=== PATIENT | male | born 1935 | race Caucasian/White ===

== ENCOUNTER 2016-12-04 21:58 | Emergency (ER) | payer MEDICARE, OTHER ==
--- NOTE | 2016-12-04 22:16 | EDM.PDOC ---
ED HPI GENERAL MEDICAL PROBLEM - General Chief Complaint: General Stated Complaint: cva s/s Time Seen by Provider: 12/04/16 22:05 Source of Information: Reports: Patient History Limitations: Reports: No limitations - History of Present Illness INITIAL COMMENTS - FREE TEXT/NARRATIVE: History of present illness: [81-year-old male brought in by EMS secondary to a syncopal type presentation. Son felt it could be a TIA patient seemed to present as if he was losing consciousness and then when son talked to him he had a blank stare which then he eventually returned to full consciousness without any noticeable deficits from baseline per family.] Review of systems: As per history of present illness and below otherwise all systems reviewed and negative. Past medical history: As per history of present illness and as reviewed below otherwise noncontributory. Surgical history: As per history of present illness and as reviewed below otherwise noncontributory. Social history: No reported history of drug or alcohol abuse. Family history: As per history of present illness and as reviewed below otherwise noncontributory. Physical exam: HEENT: Atraumatic, normocephalic, pupils reactive, negative for conjunctival pallor or scleral icterus, mucous membranes moist, throat clear, neck supple, nontender, trachea midline. Lungs: Clear to auscultation, breath sounds equal bilaterally, chest nontender. Heart: S1S2, regular, negative for clicks, rubs, or JVD. Abdomen: Soft, nondistended, nontender. Negative for masses or hepatosplenomegaly. Negative for costovertebral tenderness. Pelvis: Stable nontender. Genitourinary: Deferred. Rectal: Deferred. Extremities: Atraumatic, negative for cords or calf pain. Neurovascular unremarkable. Neuro: Awake, alert, oriented. Cranial nerves II through XII unremarkable. Cerebellum unremarkable. Motor and sensory unremarkable throughout. Exam nonfocal. Patient without any notable deficits upon arrival had left-sided weakness at home when incident occurred. Shared CT results with patient patient; patient aware of ongoing disease process , indicated he desired no intervention. Patient indicates he does have a CODE STATUS of DNR/DNI. Dialogued with the son SRINATH who supported his statement indicating that the family was in line with Antonio returning home without any interventions at this juncture. 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 - Related Data Allergies Allergy/AdvReac Type Severity Reaction Status Date / Time No Known Allergies Allergy Verified 04/15/16 21:02 Home Meds: Home Meds Allopurinol [Zyloprim] 100 mg PO DAILY 12/31/14 [History] Citalopram Hydrobromide [Celexa] 20 mg PO DAILY 12/31/14 [History] Metoprolol Succinate [Toprol XL] 200 mg PO DAILY 12/31/14 [History] Tamsulosin HCl 0.4 mg PO DAILY 10/13/15 [History] atorvaSTATin Calcium [Atorvastatin Calcium] 10 mg PO DAILY 10/13/15 [History] Ascorbate Calcium [Vitamin C] 500 mg PO DAILY 12/04/16 [History] Aspirin/Calcium Carbonate/Mag [Aspirin Buffered 325 mg Tab] 325 mg PO DAILY 09/10 [History] Finasteride 5 mg PO DAILY 12/04/16 [History] Folic Acid/Vitamin B Comp W-C [Dialyvite] 1 each PO DAILY 12/04/16 [History] Past Medical History HEENT History: Reports: Hard of hearing, Sinusitis Cardiovascular History: Reports: Afib, Hypertension Other Cardiovascular History: carotid endocardectomy Respiratory History: Reports: Other (see below) Other Respiratory History: Hx of pulmonary nodule. current smoker Genitourinary History: Reports: Other (see below) Other Genitourinary History: Bladder tumor removal Neurological History: Reports: Other (see below) Other Neuro History: Expressive aphasia Endocrine/Metabolic History: Reports: Other (see below) Other Endocrine/Metabolic History: chronic renal insufficiency,.[place] , wed, [place] [facility] [place]cologic (Cancer) History: Reports: Bladder - Past Surgical History Other Male Surgeries/Procedures: left orchiectomy. Oncologic Surgical History: Reports: Other (see below) Other Oncologic Surgeries/Procedures: Bladder tumor removal. Social & Family History - Tobacco Use Smoking Status *Q: Former Smoker Years of Tobacco use: 25 Packs/Tins Daily: 0.5 Used Tobacco, but Quit: Yes Second Hand Smoke Exposure: No - Recreational Drug Use Recreational Drug Use: No ED ROS GENERAL - Review of Systems Review Of Systems: See Below (See history of present illness) ED EXAM, GENERAL - Physical Exam Exam: See Below (See history of present illness) Course - Orders/Labs/Meds Orders: Active Orders 24 hr Category Date Time Status Head wo Cont [CT] Routine Exams 12/04/16 Taken LACTIC ACID [CHEM] Stat Lab 12/04/16 22:09 Ordered Labs: Laboratory Tests 12/04/16 12/04/16 Range/Units 22:09 22:09 WBC 8.4 (5.0-10.0) 10^3/uL RBC 3.41 L (4.50-6.00) 10^6/uL Hgb 11.1 L (14.0-18.0) g/dL Hct 33.8 L (40.0-54.0) % MCV 99.1 H (82.0-94.0) fL MCH 32.6 H (27.0-32.0) pg MCHC 32.8 L (33.0-38.0) g/dL RDW Coeff of Ryan 14.1 (11.0-15.0) % Plt Count 210 (150-400) 10^3/uL Neut % (Auto) 65.6 (35-85) % Lymph % (Auto) 17.6 (10-55) % [place] % (Auto) 9.3 (0-16) % Eos % (Auto) 7.1 H (0-5) % Baso % (Auto) 0.4 (0-3) % Neut # 5.54 (1.80-7.00) 10^3/uL Lymph # 1.48 (1.00-4.80) 10^3/uL Webster # 0.78 (0.00-0.80) 10^3/uL Eos # 0.60 H (0.00-0.45) 10^3/uL Baso # 0.03 10^3/uL Sodium 140 (136-145) mEq/L Potassium 4.3 (3.5-5.0) mEq/L Chloride 99 (98-106) mEq/L Carbon Dioxide 32 (21-32) mmol/L BUN 33 H D (7-18) mg/dL Creatinine 4.4 H* D (0.7-1.3) mg/dL Est Cr Clr Drug Dosing TNP Estimated GFR (MDRD) 13 L (>=60) mL/min Glucose 110 H (75-99) mg/dL Calcium 8.5 (8.4-10.1) mg/dL Total Bilirubin 0.5 (0.0-1.0) mg/dL AST 21 (15-37) U/L ALT 25 (12-78) U/L Alkaline Phosphatase 88 (46-116) U/L Troponin I < 0.017 (0.00-0.06) ng/mL Total Protein 7.6 (6.4-8.2) g/dL Albumin 3.4 (3.4-5.0) g/dL Departure - Departure Time of Disposition: 23:40 Disposition: Home, Self-Care 01 Condition: good Clinical Impression: Syncope Qualifiers: Syncope type: unspecified Qualified Code(s): R55 - Syncope and collapse Forms: ED Department Discharge Additional Instructions: The following information is given to patients seen in the emergency department who are being discharged to home. This information is to outline your options for follow-up care. We provide all patients seen in our emergency department with a follow-up referral. The need for follow-up, as well as the timing and circumstances, are variable depending upon the specifics of your emergency department visit. If you don't have a primary care physician on staff, we will provide you with a referral. We always advise you to contact your personal physician following an emergency department visit to inform them of the circumstance of the visit and for follow-up with them and/or the need for any referrals to a consulting specialist. The emergency department will also refer you to a specialist when appropriate. This referral assures that you have the opportunity for follow-up care with a specialist. All of these measure are taken in an effort to provide you with optimal care, which includes your follow-up. Under all circumstances we always encourage you to contact your private physician who remains a resource for coordinating your care. When calling for follow-up care, please make the office aware that this follow-up is from your recent emergency room visit. If for any reason you are refused follow-up, please contact the [facility] Emergency Department at and asked to speak to the emergency department charge nurse. Followup with primary care provider one to 2 days Turned ED as needed as discussed - My Orders Last 24 Hours: My Active Orders 12/04/16 Head wo Cont [CT] Routine 12/04/16 22:09 LACTIC ACID [CHEM] Stat - Assessment/Plan Last 24 Hours: My Active Orders 12/04/16 Head wo Cont [CT] Routine 12/04/16 22:09 LACTIC ACID [CHEM] Stat
[2016-12-04 22:26] LABS: CHLORIDE,CL 99 mEq/L (98-106); SODIUM,NA 140 mEq/L (136-145)
[2016-12-05 04:19] VITALS: BP 183/73
== END 2016-12-04 23:55 | disposition home or self-care (01) ==
LOC: CC.ED 21:58
DX: R55 Syncope and collapse (principal); I48.91 Unspecified atrial fibrillation; I12.0 Hypertensive chronic kidney disease with stage 5 chronic kidney disease or end stage renal disease; R47.01 Aphasia; N18.6 End stage renal disease; Z79.82 Long term (current) use of aspirin; Z79.899 Other long term (current) drug therapy; Z87.891 Personal history of nicotine dependence
CPT/HCPCS: 36415; 70450; 80053; 84484; 85025; 93005; 93010; 99285

== ENCOUNTER 2016-12-05 11:39 | Emergency (ER) | payer MEDICARE, OTHER ==
[2016-12-05] MEDS ORDERED: Sodium Chloride 0.9% 1,000 ML IV SCH (12:30)
--- NOTE | 2016-12-05 12:35 | EDM.PDOC ---
ED HPI GENERAL MEDICAL PROBLEM - General Chief Complaint: General Stated Complaint: Pt unsure why he is here Time Seen by Provider: 12/05/16 11:39 Source of Information: Reports: Patient, Family, Old records History Limitations: Reports: Other - History of Present Illness INITIAL COMMENTS - FREE TEXT/NARRATIVE: History of present illness: [81-year-old male presenting you again with slight altered mental status on top of his underlying dementia, and concerns of a near syncopal episode at the breakfast table. Patient has a history of having been monitored on a loop device which showed numerous arrhythmias. Bradycardia in the 30s, pauses, as well as irregular ventricular rates ranging from 32-140 in 32nd runs. Patient also noted to have 3-6 second pauses.] Review of systems: As per history of present illness and below otherwise all systems reviewed and negative. Past medical history: As per history of present illness and as reviewed below otherwise noncontributory. Surgical history: As per history of present illness and as reviewed below otherwise noncontributory. Social history: No reported history of drug or alcohol abuse. Family history: As per history of present illness and as reviewed below otherwise noncontributory. Physical exam: HEENT: Atraumatic, normocephalic, pupils reactive, negative for conjunctival pallor or scleral icterus, mucous membranes moist, throat clear, neck supple, nontender, trachea midline. Lungs: Clear to auscultation, breath sounds equal bilaterally, chest nontender. Heart: S1S2, regular, negative for clicks, rubs, or JVD. Abdomen: Soft, nondistended, nontender. Negative for masses or hepatosplenomegaly. Negative for costovertebral tenderness. Pelvis: Stable nontender. Genitourinary: Deferred. Rectal: Deferred. Extremities: Atraumatic, negative for cords or calf pain. Neurovascular unremarkable. Neuro: Awake, alert, oriented slightly demented but cooperative. Cranial nerves II through XII unremarkable. Cerebellum unremarkable. Motor and sensory unremarkable throughout. Exam nonfocal. Patient has gotten more assisted that he refuses to right via ambulance indicates he is willing to go to forego via family's private vehicle. Spoke with DJ the son who indicated me in a family member could come pick him up and take him away and transfer him to the sister which is the patient's daughter and she would take him on to [facility] and address the issue with direct admission. 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 They have indicated that patient had in fact refused to participate in all care but then he would be placed in a penitentiary patient is is told this by them in my presence and patient indicates that he doesn't want to go to penitentiary and is willing to have the pacemaker placed so that he would be safe at home and potentially driving without incident of potential further syncopal episodes. Patient decision-making is poor and inconsistent due to dementia and family is moving for from a framework of being the durable medical power of motion picture narrator. Have arranged availability for intervention for patient and we'll move forward with plan to have patient go to [place] for placement of pacemaker. Diagnostics: [CBC, CMP, troponin, CK, EKG, chest x-ray] Therapeutics: [] Impression: [Non-perfusing rhythms] Plan: [Spoke with when calling for her third photo facility had agreement for direct admission for patient to go to what is expected to] Definitive disposition and diagnosis as appropriate pending reevaluation and review of above. - Related Data Allergies Allergy/AdvReac Type Severity Reaction Status Date / Time No Known Allergies Allergy Verified 12/05/16 11:52 Home Meds: Home Meds Allopurinol [Zyloprim] 100 mg PO DAILY 12/31/14 [History] Citalopram Hydrobromide [Celexa] 20 mg PO DAILY 12/31/14 [History] Metoprolol Succinate [Toprol XL] 200 mg PO DAILY 12/31/14 [History] Tamsulosin HCl 0.4 mg PO DAILY 10/13/15 [History] atorvaSTATin Calcium [Atorvastatin Calcium] 10 mg PO DAILY 10/13/15 [History] Finasteride 5 mg PO DAILY 12/04/16 [History] Furosemide [Lasix] 80 mg PO DAILY 12/05/16 [History] Multivitamin [Multivitamins] 1 cap PO DAILY 12/05/16 [History] Past Medical History HEENT History: Reports: Hard of hearing, Sinusitis Cardiovascular History: Reports: Afib, Hypertension Other Cardiovascular History: carotid endocardectomy Respiratory History: Reports: Other (see below) Other Respiratory History: Hx of pulmonary nodule. current smoker Genitourinary History: Reports: Other (see below) Other Genitourinary History: Bladder tumor removal Neurological History: Reports: Other (see below) Other Neuro History: Expressive aphasia Endocrine/Metabolic History: Reports: Other (see below) Other Endocrine/Metabolic History: chronic renal insufficiency,.[place] [facility] [place] (Cancer) History: Reports: Bladder - Past Surgical History Other Male Surgeries/Procedures: left orchiectomy. Oncologic Surgical History: Reports: Other (see below) Other Oncologic Surgeries/Procedures: Bladder tumor removal. Social & Family History - Family History Family Medical History: Noncontributory - Tobacco Use Smoking Status *Q: Current Every Day Smoker Years of Tobacco use: 68 Packs/Tins Daily: 0.5 Used Tobacco, but Quit: Yes Month Tobacco Last Used: 10 years Second Hand Smoke Exposure: No - Recreational Drug Use Recreational Drug Use: No ED ROS GENERAL - Review of Systems Review Of Systems: See Below (See history of present illness) ED EXAM, GENERAL - Physical Exam Exam: See Below (See history of present illness) Course - Vital Signs Last Recorded V/S: Last Vital Signs Temp 36.8 C 12/05/16 14:40 Pulse 64 12/05/16 14:40 Resp 18 12/05/16 14:40 BP 160/77 H 12/05/16 14:40 Pulse Ox 96 12/05/16 14:40 - Orders/Labs/Meds Orders: Active Orders 24 hr Category Date Time Status EKG Documentation Completion [RC] STAT Care 12/05/16 12:41 Inactive CXR [Chest 2V] [CR] Stat Exams 12/05/16 12:41 Taken Sodium Chloride 0.9% [Normal Saline] 1,000 ml Med 12/05/16 12:30 Active IV ASDIRECTED EKG 12 Lead [EK] Routine Ther 12/05/16 14:12 Ordered Medication Orders Sodium Chloride (Normal Saline) 1,000 mls @ 50 mls/hr IV ASDIRECTED GIL Stop: 12/09/16 12:22 Labs: Laboratory Tests 12/05/16 12/05/16 Range/Units 12:21 12:51 WBC 7.0 (5.0-10.0) 10^3/uL RBC 3.38 L (4.50-6.00) 10^6/uL Hgb 11.0 L (14.0-18.0) g/dL Hct 33.4 L (40.0-54.0) % MCV 98.8 H (82.0-94.0) fL MCH 32.5 H (27.0-32.0) pg MCHC 32.9 L (33.0-38.0) g/dL RDW Coeff of Ryan 14.0 (11.0-15.0) % Plt Count 207 (150-400) 10^3/uL Neut % (Auto) 66.3 (35-85) % Lymph % (Auto) 19.5 (10-55) % [place] % (Auto) 8.4 (0-16) % Eos % (Auto) 5.4 H (0-5) % Baso % (Auto) 0.4 (0-3) % Neut # 4.64 (1.80-7.00) 10^3/uL Lymph # 1.37 (1.00-4.80) 10^3/uL [place] # 0.59 (0.00-0.80) 10^3/uL Eos # 0.38 (0.00-0.45) 10^3/uL Baso # 0.03 10^3/uL Sodium 139 (136-145) mEq/L Potassium 3.8 (3.5-5.0) mEq/L Chloride 100 (98-106) mEq/L Carbon Dioxide 31 (21-32) mmol/L BUN 37 H (7-18) mg/dL Creatinine 4.5 H* (0.7-1.3) mg/dL Est Cr Clr Drug Dosing TNP Estimated GFR (MDRD) 13 L (>=60) mL/min Glucose 123 H (75-99) mg/dL Calcium 8.7 (8.4-10.1) mg/dL Total Bilirubin 0.5 (0.0-1.0) mg/dL AST 23 (15-37) U/L ALT 24 (12-78) U/L Alkaline Phosphatase 88 (46-116) U/L Creatine Kinase 131 (35-232) U/L Troponin I < 0.017 (0.00-0.06) ng/mL Total Protein 7.5 (6.4-8.2) g/dL Albumin 3.2 L (3.4-5.0) g/dL Meds: Medications Generic Name Dose Route Start Last Admin Trade Name Jose Juanq PRN Reason Stop Dose Admin Sodium Chloride 1,000 mls @ 50 mls/hr 12/05/16 12:30 Normal Saline IV 12/09/16 12:22 ASDIRECTED GIL Departure - Departure Time of Disposition: 12:44 Disposition: DC/Tfer to Acute Hospital 02 Clinical Impression: Bradyarrhythmia Forms: ED Department Discharge - My Orders Last 24 Hours: My Active Orders 12/05/16 12:30 Sodium Chloride 0.9% [Normal Saline] 1,000 ml IV ASDIRECTED 12/05/16 12:41 EKG Documentation Completion [RC] STAT CXR [Chest 2V] [CR] Stat 12/05/16 14:12 EKG 12 Lead [EK] Routine - Assessment/Plan Last 24 Hours: My Active Orders 12/05/16 12:30 Sodium Chloride 0.9% [Normal Saline] 1,000 ml IV ASDIRECTED 12/05/16 12:41 EKG Documentation Completion [RC] STAT CXR [Chest 2V] [CR] Stat 12/05/16 14:12 EKG 12 Lead [EK] Routine
[2016-12-05 13:02] LABS: CHLORIDE,CL 100 mEq/L (98-106); SODIUM,NA 139 mEq/L (136-145)
[2016-12-05 14:41] VITALS: BP 160/77
== END 2016-12-05 15:20 ==
LOC: CC.ED 11:39
DX: I49.8 Other specified cardiac arrhythmias (principal); I48.91 Unspecified atrial fibrillation; N18.6 End stage renal disease; I12.0 Hypertensive chronic kidney disease with stage 5 chronic kidney disease or end stage renal disease; Z79.899 Other long term (current) drug therapy; Z87.891 Personal history of nicotine dependence
CPT/HCPCS: 36415; 71020; 80053; 82550; 84484; 85025; 93005; 93010; 99285

== ENCOUNTER 2017-04-23 21:00 | Emergency (ER) | payer MEDICARE, OTHER ==
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
[2017-04-23] MEDS ORDERED: Sodium Polystyrene Sulfonate 15 GM/60 ML Susp 60 ML Bot PO ONE (23:00)
[2017-04-23] MEDS ORDERED: Ondansetron 4 MG/2 ML SDV IVPUSH STA (23:21)
[2017-04-24 00:01] VITALS: BP 154/104
== END 2017-04-24 01:00 ==
LOC: CC.ED 21:00
DX: N17.9 Acute kidney failure, unspecified (principal); I48.91 Unspecified atrial fibrillation; F17.210 Nicotine dependence, cigarettes, uncomplicated; I13.10 Hypertensive heart and chronic kidney disease without heart failure, with stage 1 through stage 4 chronic kidney disease, or unspecified chronic kidney disease; N18.9 Chronic kidney disease, unspecified; Z79.899 Other long term (current) drug therapy; Z95.0 Presence of cardiac pacemaker; Z99.2 Dependence on renal dialysis
CPT/HCPCS: 36415; 51702; 71020; 80053; 81001; 83605; 85025; 87040; 87086; 93005; 96374; 99285; A9270; J2405; 93010; 99284

== ENCOUNTER 2017-05-28 18:44 | Inpatient (IN) | payer MEDICARE, OTHER ==
[2017-05-28 19:47] LABS: CHLORIDE,CL 99 mEq/L (98-106); SODIUM,NA 141 mEq/L (136-145)
[2017-05-28] MEDS ORDERED: Insulin Regular, Human 100 Units/ML 10 ML Vial SUBCUT ONE (20:38)
[2017-05-28] MEDS ORDERED: LORazepam 2 MG/ML Syringe IVPUSH PRN (20:59)
[2017-05-28] MEDS ORDERED: LORazepam 2 MG/ML Syringe ONE (21:05)
[2017-05-28] MEDS ORDERED: Nicotine 14 MG/24 Hr Patch TRDERM SCH (22:00)
[2017-05-28] MEDS ORDERED: Haloperidol Lactate 5 MG/ML SDV IVPUSH PRN (22:26)
[2017-05-28] MEDS: Haloperidol Lactate 5 MG/ML SDV IVPUSH PRN (23:50)
--- NOTE | 2017-05-29 00:07 | EDM.PDOC ---
ED HPI GENERAL MEDICAL PROBLEM - General Chief Complaint: General Stated Complaint: CVA S/S Time Seen by Provider: 05/28/17 18:46 Source of Information: Reports: Family History Limitations: Reports: Altered Mental Status - History of Present Illness INITIAL COMMENTS - FREE TEXT/NARRATIVE: This is an 81 year old male that presents to the ER arrived via EMS. The son is at bedside with the patient. The son reports that the patient has been going down hill the past couple of weeks. He reports that he has become more confused and less able to do things on his own. He reports that the patient early in the morning had some difficulty speaking and had some slurred speech. He reports as the day went on it got a little worse. He reports then about 4pm the patient was sitting out on the porch, the son came out to the porch and his dad was sitting n the chair slumped backwards, unresponsive, and would not respond to him. He called 911. The patient arrived to the ER unresponsive. The patient initially did have eyes open but staring upward to the left ceiling. The patient would not respond verbally or to painful stimuli. The patient right arm was flaccid and would immediately fall to the stretcher when raised in the air, his right leg would fall slowly to the stretcher. The patient has noisy/wet sounding respirations. He is on 6L NC and saturation is 87%. The patient does not follow commands or grasping or any other simple commands. He does not look or follow me when I speak to him. The son reports nilton patient is a chronic dialysis patient and the patient did not go to his dialysis on Monday. He reports that the patient did not want to go because he is tired of doing dialysis. The son is the POA. He reports to me that the patient is a DNR. At this time he would like diagnostic testing done, but at this time no other interventions. He does not want this patient intubated, cpr, or medications other than oxygen at this time. Onset: Today Onset Date: 05/28/17 Onset Time: 16:00 Severity: Severe Associated Symptoms: Reports: Confusion Treatments [employer] OPERATOR: Reports: Oxygen - Related Data Allergies Allergy/AdvReac Type Severity Reaction Status Date / Time No Known Allergies Allergy Verified 04/23/17 21:05 Home Meds: Home Meds Allopurinol [Zyloprim] 100 mg PO DAILY 12/31/14 [History] Citalopram Hydrobromide [Celexa] 20 mg PO DAILY 12/31/14 [History] Metoprolol Succinate [Toprol XL] 200 mg PO DAILY 12/31/14 [History] atorvaSTATin Calcium [Atorvastatin Calcium] 10 mg PO DAILY 10/13/15 [History] Finasteride 5 mg PO DAILY 12/04/16 [History] Multivitamin [Multivitamins] 1 cap PO DAILY 12/05/16 [History] Ascorbate Calcium [Vitamin C] 500 mg PO DAILY 05/28/17 [History] Vit B Cmplx 3/Fa/Vit C/Biotin [Fay-Nevaeh Rx Tablet] 1 tab PO DAILY 05/28/17 [ History] Past Medical History HEENT History: Reports: Hard of Hearing, Sinusitis Cardiovascular History: Reports: Afib, Hypertension Other Cardiovascular History: carotid endocardectomy Respiratory History: Reports: Other (See Below) Other Respiratory History: Hx of pulmonary nodule. current smoker Genitourinary History: Reports: Other (See Below) Other Genitourinary History: Bladder tumor removal Neurological History: Reports: Other (See Below) Other Neuro History: Expressive aphasia Endocrine/Metabolic History: Reports: Other (See Below) Other Endocrine/Metabolic History: chronic renal insufficiency,.Dialysis on and mon, at [facility] [place] Oncologic (Cancer) History: Reports: Bladder - Past Surgical History Male Surgical History: Reports: Other (See Below) Oncologic Surgical History: Reports: Other (See Below) Social & Family History - Family History Family Medical History: Noncontributory - Tobacco Use Smoking Status *Q: Current Every Day Smoker Years of Tobacco use: 68 Packs/Tins Daily: 0.5 Used Tobacco, but Quit: No Month Tobacco Last Used: 10 years Second Hand Smoke Exposure: No - Recreational Drug Use Recreational Drug Use: No ED ROS GENERAL - Review of Systems Review Of Systems: See Below Constitutional: Reports: Weakness (gnerally), Fatigue HEENT: Reports: No Symptoms Respiratory: Reports: Shortness of Breath, Cough Cardiovascular: Reports: No Symptoms Endocrine: Reports: No Symptoms GI/Abdominal: Reports: No Symptoms : Reports: No Symptoms Musculoskeletal: Reports: No Symptoms Skin: Reports: No Symptoms Neurological: Reports: Confusion, Change in Speech, Other (unresponsive) Psychiatric: Reports: No Symptoms Hematologic/Lymphatic: Reports: No Symptoms Immunologic: Reports: No Symptoms ED EXAM, GENERAL - Physical Exam Exam: See Below Exam Limited By: Altered Mental Status General Appearance: Moderate Distress Eye Exam: Bilateral Eye: PERRL Ears: Normal External Exam, Normal Canal, Normal TMs Ear Exam: Bilateral Ear: Auricle Normal, Canal Normal, TM normal Nose: Normal Inspection, Normal Mucosa, No Blood Throat/Mouth: Other (White foaming fluid appearing drooling. Consistent with CHF. ) Head: Atraumatic, Normocephalic Neck: Normal Inspection Respiratory/Chest: No Accessory Muscle Use, Crackles (Severe fluid filled all throughout. ) Cardiovascular: Normal Peripheral Pulses, Systolic Murmur Peripheral Pulses: 1+: Radial (L), Radial (R), Posterior Tibial (L), Posterior Tibial (R) GI/Abdominal: Normal Bowel Sounds, Soft Back Exam: Normal Inspection Extremities: Normal Inspection, Pedal Edema (+1 BLE) Neurological: Inattentive, Unresponsive, Other (Right sided arm flaccid. NIH Stroke score is 25. However, difficulty due to patient unresponsiveness. No verbalization, right upper limb flaccid, right lower leg weakness. Patient stares in space. ) Skin Exam: Warm, Dry, Intact, Normal Color, No Rash Lymphatic: No Adenopathy Course - Vital Signs Last Recorded V/S: Last Vital Signs Temp 102.3 F H 05/29/17 07:49 Pulse 70 05/29/17 07:49 Resp 28 H 05/29/17 07:49 BP 160/74 H 05/29/17 07:49 Pulse Ox 98 05/29/17 07:49 - Orders/Labs/Meds Orders: Active Orders 24 hr Category Date Time Status Chest 1V Frontal [CR] Stat Exams 05/28/17 19:35 Taken Head wo Cont [CT] Stat Exams 05/28/17 18:47 Taken CULTURE BLOOD [BC] Stat Lab 05/28/17 18:47 Results CULTURE BLOOD [BC] Stat Lab 05/28/17 18:47 Results Blood Culture x2 Reflex Set [OM.PC] Stat Oth 05/28/17 18:47 Ordered Medication Orders Haloperidol Lactate (Haldol) 2 mg IVPUSH Q8H PRN PRN Reason: Anxiety Last Admin: 05/29/17 17:01 Dose: 2 mg Admin: 05/29/17 10:16 Dose: 2 mg Admin: 05/28/17 23:50 Dose: 2 mg Hydromorphone HCl (Dilaudid) 0.5 mg IVPUSH Q2H PRN PRN Reason: Pain (severe 7-10) Last Admin: 05/29/17 02:16 Dose: 0.5 mg Lorazepam (Ativan) 1 mg IVPUSH Q2H PRN PRN Reason: Anxiety Lorazepam (Ativan) 1 mg IVPUSH Q4H [facility] Last Admin: 05/29/17 14:14 Dose: 1 mg Admin: 05/29/17 10:49 Dose: Not Given Miscellaneous Information (Remove Patch) 1 ea TRDERM BEDTIME [facility] Last Admin: 05/29/17 10:15 Dose: 1 ea Morphine Sulfate (Morphine) 4 mg IVPUSH Q6H [facility] Last Admin: 05/29/17 17:01 Dose: Not Given Admin: 05/29/17 10:50 Dose: Not Given Nicotine (Habitrol) 14 mg TRDERM DAILY [facility] Last Admin: 05/28/17 22:51 Dose: 14 mg Ondansetron HCl (Zofran) 4 mg IV Q6H PRN PRN Reason: Nausea/Vomiting Last Admin: 05/29/17 17:00 Dose: 4 mg Sodium Chloride (Saline Flush) 10 ml FLUSH ASDIRECTED PRN PRN Reason: Keep Vein Open Labs: Laboratory Tests 05/28/17 05/28/17 05/28/17 Range/Units 18:47 18:47 18:47 WBC 10.9 H (5.0-10.0) 10^3/uL RBC 3.31 L (4.50-6.00) 10^6/uL Hgb 10.2 L (14.0-18.0) g/dL Hct 31.1 L (40.0-54.0) % MCV 94.0 (82.0-94.0) fL MCH 30.8 (27.0-32.0) pg MCHC 32.8 L (33.0-38.0) g/dL RDW Coeff of Ryan 16.3 H (11.0-15.0) % Plt Count 236 (150-400) 10^3/uL Neut % (Auto) 75.2 (35-85) % Lymph % (Auto) 9.3 L (10-55) % [place] % (Auto) 10.4 (0-16) % Eos % (Auto) 4.7 (0-5) % Baso % (Auto) 0.4 (0-3) % Neut # (Auto) 8.16 H (1.80-7.00) 10^3/uL Lymph # (Auto) 1.01 (1.00-4.80) 10^3/uL [place] # (Auto) 1.13 H (0.00-0.80) 10^3/uL Eos # (Auto) 0.51 H (0.00-0.45) 10^3/uL Baso # (Auto) 0.04 10^3/uL Sodium 141 (136-145) mEq/L Potassium 5.2 H (3.5-5.0) mEq/L Chloride 99 (98-106) mEq/L Carbon Dioxide 27 (21-32) mmol/L BUN 40 H (7-18) mg/dL Creatinine 10.5 H* (0.7-1.3) mg/dL Est Cr Clr Drug Dosing TNP Estimated GFR (MDRD) 5 L (>=60) mL/min Glucose 107 H D (75-99) mg/dL Lactic Acid 1.9 (0.4-2.0) mmol/L Calcium 8.6 (8.4-10.1) mg/dL Total Bilirubin 0.8 (0.0-1.0) mg/dL AST 19 (15-37) U/L ALT 15 (12-78) U/L Alkaline Phosphatase 66 (46-116) U/L Troponin I 0.031 (0.00-0.06) ng/mL C-Reactive Protein 3.6 H (0.2-0.8) mg/dL NT-Pro-B Natriuret Pep > 28904 H (0-1000) pg/mL Total Protein 6.9 (6.4-8.2) g/dL Albumin 3.3 L (3.4-5.0) g/dL Meds: Medications Generic Name Dose Route Start Last Admin Trade Name Freq PRN Reason Stop Dose Admin Haloperidol Lactate 2 mg 05/28/17 23:37 05/29/17 17:01 Haldol IVPUSH 2 mg Q8H PRN Administration Anxiety Hydromorphone HCl 0.5 mg 05/29/17 01:40 05/29/17 02:16 Dilaudid IVPUSH 0.5 mg Q2H PRN Administration Pain (severe 7-10) Lorazepam 1 mg 05/29/17 01:40 Ativan IVPUSH Q2H PRN Anxiety Lorazepam 1 mg 05/29/17 10:45 05/29/17 14:14 Ativan IVPUSH 1 mg Q4H GIL Administration Miscellaneous Information 1 ea 05/29/17 08:00 05/29/17 10:15 Remove Patch TRDERM 1 ea BEDTIME [facility] Administration Morphine Sulfate 4 mg 05/29/17 10:45 05/29/17 17:01 Morphine IVPUSH Not Given Q6H GIL Nicotine 14 mg 05/28/17 22:00 05/28/17 22:51 Habitrol TRDERM 14 mg DAILY [facility] Administration Ondansetron HCl 4 mg 05/29/17 01:40 05/29/17 17:00 Zofran IV 4 mg Q6H PRN Administration Nausea/Vomiting Sodium Chloride 10 ml 05/29/17 01:40 Saline Flush FLUSH ASDIRECTED PRN Keep Vein Open Discontinued Medications Generic Name Dose Route Start Last Admin Trade Name Freq PRN Reason Stop Dose Admin Acetaminophen Confirm 05/29/17 08:06 05/29/17 10:41 Tylenol Administered 05/29/17 08:07 Not Given Dose 650 mg .ROUTE .STK-MED ONE Acetaminophen 650 mg 05/29/17 10:38 05/29/17 10:30 Tylenol RECTAL 05/29/17 10:39 650 mg NOW ONE Administration Haloperidol Lactate 0.5 mg 05/28/17 22:26 05/28/17 22:51 Haldol IVPUSH 0.5 mg Q8H PRN Administration Anxiety Haloperidol Lactate 2.5 mg 05/29/17 00:13 05/29/17 00:20 Haldol IVPUSH 05/29/17 00:14 2.5 mg ONETIME ONE Administration Lorazepam Confirm 05/28/17 21:05 05/28/17 21:28 Ativan Administered 05/28/17 21:06 Not Given Dose 2 mg .ROUTE .STK-MED ONE Lorazepam 1 mg 05/28/17 20:59 05/28/17 21:10 Ativan IVPUSH 1 mg Q6H PRN Administration Anxiety - Radiology Interpretation Free Text/Narrative:: CXR; Interpreted by radiologist: Severe pulmonary edema Head CT: No acute findings. Recommend MRI if symptoms of stroke are present. Old infarcts. - Re-Assessments/Exams Free Text/Narrative Re-Assessment/Exam: 05/28/171999 After getting all results back, I have discussed all results with the patient son ESMER and daughter at bedside. I have explained to them that their father is very critical and I do believe he is going to without treatment. I did explain he has a UTI from labs done on Monday, he is currently not on abx treatment for this. The RN today in ER did not get any urine from cath for sample. I did explain the patient has severe and more than likely end stage heart failure with his BNP and CXR. I did explain to them the possibility of an echo to be done. I explained while the head ct was negative, I would recommend an MRI of the brain due to the patient presentation initially of right sided weakness and abrupt responsiveness and slurred speech. I also discussed with them his renal labs and his missing dialysis may have contributed to this worsening of condition. I explained that the patient unresponsiveness could be related to stroke or infection. I recommended to the family echo, MRI, transfer , transfer with dialysis. I have recommended lasix to remove fluid, abx for UTI and possible sepsis, fluids for hydration. The son ESMER at this time does not want any treatments done. He does not want to have patient transferred, any more diagnostic tests, abx, lasix, or fluids. At this time he would only like for patient to be kept comfortable and relaxed. Patient is also emergently HTN, no treatment per family. 05/28/172014 The patient is in room 115, this is where I spoke to family. The patient is also now moving all extremities and is restless. He is grabbing a nonrebreather mask that was placed on the patient. His saturation is now 89% on NRB mask. The family has asked to give him medications to keep him comfortable and less restless. I again have explained to the family that without further treatment I believe this patient will The patient son reports he will talk to other family members tomorrow about his fathers condition, but at this time he is a DNR with comfort measures only. I will admit this patient for comfort care. Departure - Departure Time of Disposition: 19:55 Disposition: Admitted As Inpatient 65 Condition: Critical Clinical Impression: Need for comfort care, Unresponsive, UTI, Urinary tract infectious disease Altered mental status Qualifiers: Altered mental status type: coma Coma depth: [place] coma 3-8 Coma timing: in the field (EMT or ambulance) Qualified Code(s): R40.2431 - Harris coma scale score 3-8, in the field [EMT or ambulance] Acute on chronic renal failure Qualifiers: Acute renal failure type: unspecified 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 Qualified Code(s): N17.9 - Acute kidney failure, unspecified Congestive heart failure Qualifiers: Congestive heart failure type: systolic Congestive heart failure chronicity: acute Qualified Code(s): I50.21 - Acute systolic (congestive) heart failure - Discharge Information - My Orders Last 24 Hours: My Active Orders 05/28/17 18:47 Head wo Cont [CT] Stat CULTURE BLOOD [BC] Stat CULTURE BLOOD [BC] Stat Blood Culture x2 Reflex Set [OM.PC] Stat 05/28/17 19:35 Chest 1V Frontal [CR] Stat - Assessment/Plan Last 24 Hours: My Active Orders 05/28/17 18:47 Head wo Cont [CT] Stat CULTURE BLOOD [BC] Stat CULTURE BLOOD [BC] Stat Blood Culture x2 Reflex Set [OM.PC] Stat 05/28/17 19:35 Chest 1V Frontal [CR] Stat Plan: PLEASE SEE RN NOTE FOR PFSH. PLEASE USE THIS ER H&P ADMIT H&P. I do anticipate this patient is going to in the near future on this admission. This patient is currently comfort care measures.
[2017-05-29] MEDS ORDERED: Haloperidol Lactate 5 MG/ML SDV IVPUSH ONE (00:13)
[2017-05-29] MEDS ORDERED: Ondansetron 4 MG/2 ML SDV IV PRN (01:40)
[2017-05-29] MEDS ORDERED: HYDROmorphone 1 MG/ML Syringe IVPUSH PRN (01:40)
[2017-05-29] MEDS ORDERED: LORazepam 2 MG/ML Syringe IVPUSH PRN (01:40)
[2017-05-29] MEDS ORDERED: Sodium Chloride 0.9% 10 ML Syringe FLUSH PRN (01:40)
[2017-05-29] MEDS ORDERED: Acetaminophen 650 MG Supp ONE (08:06)
[2017-05-29] MEDS: Haloperidol Lactate 5 MG/ML SDV IVPUSH PRN ×2 (10:16→17:01)
[2017-05-29] MEDS ORDERED: Acetaminophen 650 MG Supp RECTAL ONE (10:38)
[2017-05-29] MEDS: LORazepam 2 MG/ML Syringe IVPUSH SCH ×4 (10:44→17:59)
[2017-05-29] MEDS: Morphine 4 MG/ML Syringe IVPUSH SCH ×2 (10:50→17:01)
--- NOTE | 2017-05-29 11:44 | PCM.PN ---
- General Info Date of Service: 05/29/17 Functional Status: Reports: Pain Controlled - Review of Systems General: Reports: Fever HEENT: Reports: No Symptoms Pulmonary: Reports: Shortness of Breath Cardiovascular: Reports: No Symptoms Gastrointestinal: Reports: No Symptoms Genitourinary: Reports: No Symptoms Musculoskeletal: Reports: No Symptoms Skin: Reports: No Symptoms Neurological: Reports: Other (Unsoncience, Responds with saying yes that is garbled, and does have restless arms with pain stimuli. Otherwise unrepsonsive. No eye opening. Harris coma scale 8.) Psychiatric: Reports: No Symptoms - Patient Data Vitals - Most Recent: Last Vital Signs Temp 102.3 F H 05/29/17 07:49 Pulse 70 05/29/17 07:49 Resp 28 H 05/29/17 07:49 BP 160/74 H 05/29/17 07:49 Pulse Ox 98 05/29/17 07:49 Weight - Most Recent: 160 lb Med Orders - Current: Current Medications Haloperidol Lactate (Haldol) 2 mg IVPUSH Q8H PRN PRN Reason: Anxiety Last Admin: 05/29/17 10:16 Dose: 2 mg Hydromorphone HCl (Dilaudid) 0.5 mg IVPUSH Q2H PRN PRN Reason: Pain (severe 7-10) Last Admin: 05/29/17 02:16 Dose: 0.5 mg Lorazepam (Ativan) 1 mg IVPUSH Q2H PRN PRN Reason: Anxiety Lorazepam (Ativan) 1 mg IVPUSH Q4H [facility] Last Admin: 05/29/17 10:49 Dose: Not Given Miscellaneous Information (Remove Patch) 1 ea TRDERM BEDTIME [facility] Last Admin: 05/29/17 10:15 Dose: 1 ea Morphine Sulfate (Morphine) 4 mg IVPUSH Q6H [facility] Last Admin: 05/29/17 10:50 Dose: Not Given Nicotine (Habitrol) 14 mg TRDERM DAILY [facility] Last Admin: 05/28/17 22:51 Dose: 14 mg Ondansetron HCl (Zofran) 4 mg IV Q6H PRN PRN Reason: Nausea/Vomiting Sodium Chloride (Saline Flush) 10 ml FLUSH ASDIRECTED PRN PRN Reason: Keep Vein Open Discontinued Medications Acetaminophen (Tylenol) Confirm Administered Dose 650 mg .ROUTE .STK-MED ONE Stop: 05/29/17 08:07 Last Admin: 05/29/17 10:41 Dose: Not Given Acetaminophen (Tylenol) 650 mg RECTAL NOW ONE Stop: 05/29/17 10:39 Haloperidol Lactate (Haldol) 0.5 mg IVPUSH Q8H PRN PRN Reason: Anxiety Last Admin: 05/28/17 22:51 Dose: 0.5 mg Haloperidol Lactate (Haldol) 2.5 mg IVPUSH ONETIME ONE Stop: 05/29/17 00:14 Last Admin: 05/29/17 00:20 Dose: 2.5 mg Lorazepam (Ativan) Confirm Administered Dose 2 mg .ROUTE .STK-MED ONE Stop: 05/28/17 21:06 Last Admin: 05/28/17 21:28 Dose: Not Given Lorazepam (Ativan) 1 mg IVPUSH Q6H PRN PRN Reason: Anxiety Last Admin: 05/28/17 21:10 Dose: 1 mg - Exam General: Moderate Distress HEENT: Pupils Equal, Pupils Reactive (very slow) Lungs: Crackles (severe throughout. ) Cardiovascular: Regular Rate, No Murmurs (Systolic), Other (Pacemaker. ) GI/Abdominal Exam: Soft, Non-Tender Extremities: Normal Inspection, Normal Range of Motion, Non-Tender, No Pedal Edema, Normal Capillary Refill Peripheral Pulses: 2+: Posterior Tibial (L), Posterior Tibial (R), Dorsalis Pedis (L), Dorsalis Pedis (R) Skin: Warm, Dry, Intact Neurological: Other (Withdraw to pain. Right arm drops during stroke exam. Both legs drop to bed. NIH Stroke Score is 25 today.) - Problem List Review Problem List Initiated/Reviewed/Updated: Yes - My Orders Last 24 Hours: My Active Orders 05/28/17 22:00 Nicotine [Habitrol] 14 mg TRDERM DAILY 05/28/17 23:37 Haloperidol Lactate [Haldol] 2 mg IVPUSH Q8H PRN 05/29/17 01:28 Resuscitation Status Routine 05/29/17 01:33 Comfort Measures [OM.PC] Routine 05/29/17 01:40 Patient Status [ADT] Routine Bedrest Bedside Commode [RC] .PRN Oxygen Therapy [RC] BID Peripheral IV Care [RC] 0800,2000 Vital Signs [RC] 0000,0800,1600 HYDROmorphone [Dilaudid] 0.5 mg IVPUSH Q2H PRN LORazepam [Ativan] 1 mg IVPUSH Q2H PRN Ondansetron [Zofran] 4 mg IV Q6H PRN Sodium Chloride 0.9% [Saline Flush] 10 ml FLUSH ASDIRECTED PRN Peripheral IV Insertion Adult [OM.PC] Routine 05/29/17 08:00 Remove Patch 1 ea TRDERM BEDTIME 05/29/17 10:45 LORazepam [Ativan] 1 mg IVPUSH Q4H Morphine 4 mg IVPUSH Q6H - Plan Plan:: This patient is an 81 year old male that presented to the ER. Patient was seen and admitted for comfort care measures. I have again spoken to all 5 family members incuding both POAs at bedside of the patient. I have explained my findings and diagnostic testing that was performed yesterday and again discussed every treatment option of this patient. They all are in agreement that they would only like comfort care measures. They only want to keep the patient comfortable. They would like for him to be sleeping, painfree, and not restless. They would like use to remove oxygen from the patient. They do not want to transfer, dialysis, abx, lasix, fluids, or any forms of prolonging treatments. They are aware that this patient will and they are okay with this. The patient is a DNR and is comfort care.
[2017-05-30] MEDS: LORazepam 2 MG/ML Syringe IVPUSH SCH ×5 (00:56→20:24)
[2017-05-30] MEDS: Morphine 4 MG/ML Syringe IVPUSH SCH ×3 (00:57→11:23)
[2017-05-30] MEDS ORDERED: Morphine 4 MG/ML Syringe IVPUSH PRN (11:19)
[2017-05-30] MEDS ORDERED: fentaNYL 100 MCG/2 ML SDV IVPUSH PRN (12:09)
[2017-05-30 14:26] VITALS: BP 147/54
[2017-05-30] MEDS ORDERED: Acetaminophen 650 MG Supp RECTAL PRN (16:16)
--- NOTE | 2017-05-30 20:00 | PCM.PN ---
- General Info Date of Service: 05/30/17 Functional Status: Reports: Pain Controlled. Denies: Tolerating Diet, Ambulating - Review of Systems General: Reports: Weakness, Other (review of symptoms is unobtainable as patient is unresponsive) - Patient Data Vitals - Most Recent: Last Vital Signs Temp 98.1 F 05/30/17 08:00 Pulse 69 05/30/17 08:00 Resp 16 05/30/17 08:00 BP 147/54 H 05/30/17 08:00 Pulse Ox 82 L 05/30/17 08:00 Weight - Most Recent: 160 lb Med Orders - Current: Current Medications Acetaminophen (Tylenol) 650 mg RECTAL Q6H PRN PRN Reason: Fever Fentanyl (Sublimaze) 12.5 - 25 mcg IVPUSH Q2H PRN PRN Reason: Pain Haloperidol Lactate (Haldol) 2 mg IVPUSH Q8H PRN PRN Reason: Anxiety Last Admin: 05/29/17 17:01 Dose: 2 mg Hydromorphone HCl (Dilaudid) 0.5 mg IVPUSH Q2H PRN PRN Reason: Pain (severe 7-10) Last Admin: 05/29/17 02:16 Dose: 0.5 mg Lorazepam (Ativan) 1 mg IVPUSH Q2H PRN PRN Reason: Anxiety Last Admin: 05/30/17 11:34 Dose: 1 mg Lorazepam (Ativan) 1 mg IVPUSH Q12H [facility] Ondansetron HCl (Zofran) 4 mg IV Q6H PRN PRN Reason: Nausea/Vomiting Last Admin: 05/29/17 17:00 Dose: 4 mg Sodium Chloride (Saline Flush) 10 ml FLUSH ASDIRECTED PRN PRN Reason: Keep Vein Open Discontinued Medications Acetaminophen (Tylenol) Confirm Administered Dose 650 mg .ROUTE .STK-MED ONE Stop: 05/29/17 08:07 Last Admin: 05/29/17 10:41 Dose: Not Given Acetaminophen (Tylenol) 650 mg RECTAL NOW ONE Stop: 05/29/17 10:39 Last Admin: 05/29/17 10:30 Dose: 650 mg Haloperidol Lactate (Haldol) 0.5 mg IVPUSH Q8H PRN PRN Reason: Anxiety Last Admin: 05/28/17 22:51 Dose: 0.5 mg Haloperidol Lactate (Haldol) 2.5 mg IVPUSH ONETIME ONE Stop: 05/29/17 00:14 Last Admin: 05/29/17 00:20 Dose: 2.5 mg Lorazepam (Ativan) Confirm Administered Dose 2 mg .ROUTE .STK-MED ONE Stop: 05/28/17 21:06 Last Admin: 05/28/17 21:28 Dose: Not Given Lorazepam (Ativan) 1 mg IVPUSH Q6H PRN PRN Reason: Anxiety Last Admin: 05/28/17 21:10 Dose: 1 mg Lorazepam (Ativan) 1 mg IVPUSH Q4H [facility] Last Admin: 05/30/17 11:34 Dose: Not Given Miscellaneous Information (Remove Patch) 1 ea TRDERM BEDTIME [facility] Last Admin: 05/29/17 21:43 Dose: Not Given Morphine Sulfate (Morphine) 4 mg IVPUSH Q6H [facility] Last Admin: 05/30/17 11:23 Dose: Not Given Morphine Sulfate (Morphine) 4 mg IVPUSH Q6H PRN PRN Reason: pain Nicotine (Habitrol) 14 mg TRDERM DAILY [facility] Last Admin: 05/28/17 22:51 Dose: 14 mg - Exam General: Obtunded Neck: Supple Lungs: Crackles Cardiovascular: Regular Rate, Regular Rhythm GI/Abdominal Exam: Normal Bowel Sounds, Soft Extremities: No Pedal Edema Skin: Warm, Dry Neurological: Other (does not respond to verbal stimuli, withdraws to sternal rub) - Problem List & Annotations (1) Acute on chronic renal failure SNOMED Code(s): 731154352 Code(s): N17.9 - ACUTE KIDNEY FAILURE, UNSPECIFIED; N18.9 - CHRONIC KIDNEY DISEASE, UNSPECIFIED Status: Acute Current Visit: Yes Qualifiers: Acute renal failure type: unspecified 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 Qualified Code(s): N17.9 - Acute kidney failure, unspecified ; N18.9 - Chronic kidney disease, unspecified; Z99.2 - Dependence on renal dialysis (2) Congestive heart failure SNOMED Code(s): 99050532 Code(s): I50.9 - HEART FAILURE, UNSPECIFIED Status: Acute Current Visit: Yes Qualifiers: Congestive heart failure type: systolic Congestive heart failure chronicity : acute Qualified Code(s): I50.21 - Acute systolic (congestive) heart failure (3) Need for comfort care SNOMED Code(s): 270548328 Code(s): KTG2665 - Status: Acute Current Visit: Yes (4) Unresponsive SNOMED Code(s): 743896971 Code(s): R41.89 - OTH SYMPTOMS AND SIGNS W COGNITIVE FUNCTIONS AND AWARENESS Status: Acute Current Visit: Yes - Problem List Review Problem List Initiated/Reviewed/Updated: Yes - My Orders Last 24 Hours: My Active Orders 05/30/17 12:09 fentaNYL [Sublimaze] 12.5 - 25 mcg IVPUSH Q2H PRN 05/30/17 16:16 Acetaminophen [Tylenol] 650 mg RECTAL Q6H PRN 05/30/17 20:00 LORazepam [Ativan] 1 mg IVPUSH Q12H - Assessment Assessment:: Comfort Cares/End of Life CHF Acute on chronic renal failure UTI - Plan Plan:: This patient is an 81 year old male that presented to the ER. Patient was seen and admitted for comfort care measures. I have again spoken to all 5 family members incuding both POAs at bedside of the patient. I have explained my findings and diagnostic testing that was performed yesterday and again discussed every treatment option of this patient. They all are in agreement that they would only like comfort care measures. They only want to keep the patient comfortable. They would like for him to be sleeping, painfree, and not restless. They would like use to remove oxygen from the patient. They do not want to transfer, dialysis, abx, lasix, fluids, or any forms of prolonging treatments. They are aware that this patient will and they are okay with this. The patient is a DNR and is comfort care. 05-30-2017 No family present with patient today. Did discuss with locum provider this am the discussion he had at length with family who wants patient kept comfortable with no further lab, xrays, medications or dialysis other than those that provide comfort. Patient had expressed a desire to stop any further dialysis and treatment last week and had chosen to not go on Monday. Became more and more weak and short of breath over the weekend until presenting here. Family would like to continue comfort cares only. Will continue with IV Ativan. Will switch to Fentanyl as needed. Keep patient as comfortable as possible with end of life expected.
[2017-05-31] MEDS: LORazepam 2 MG/ML Syringe IVPUSH SCH ×2 (08:08→20:12)
--- NOTE | 2017-06-01 08:32 | PCM.PN ---
- General Info Date of Service: 05/31/17 Admission Dx/Problem (Free Text): End Stage Renal Failure Comfort Cares/End of Life Functional Status: Reports: Pain Controlled, Tolerating Diet. Denies: Ambulating - Review of Systems General: Reports: Weakness, Fatigue, Other (patient more responsive today but confused, does not offer any complaints). Denies: Fever Pulmonary: Reports: Shortness of Breath Gastrointestinal: Reports: Diarrhea - Patient Data Vitals - Most Recent: Last Vital Signs Temp 98.1 F 05/30/17 08:00 Pulse 69 05/30/17 08:00 Resp 16 05/30/17 08:00 BP 147/54 H 05/30/17 08:00 Pulse Ox 82 L 05/30/17 08:00 Weight - Most Recent: 160 lb Med Orders - Current: Current Medications Acetaminophen (Tylenol) 650 mg RECTAL Q6H PRN PRN Reason: Fever Fentanyl (Sublimaze) 12.5 - 25 mcg IVPUSH Q2H PRN PRN Reason: Pain Haloperidol Lactate (Haldol) 2 mg IVPUSH Q8H PRN PRN Reason: Anxiety Last Admin: 05/29/17 17:01 Dose: 2 mg Hydromorphone HCl (Dilaudid) 0.5 mg IVPUSH Q2H PRN PRN Reason: Pain (severe 7-10) Last Admin: 05/29/17 02:16 Dose: 0.5 mg Lorazepam (Ativan) 1 mg IVPUSH Q2H PRN PRN Reason: Anxiety Last Admin: 05/30/17 11:34 Dose: 1 mg Lorazepam (Ativan) 1 mg IVPUSH Q12H [facility] Last Admin: 05/31/17 20:12 Dose: 1 mg Ondansetron HCl (Zofran) 4 mg IV Q6H PRN PRN Reason: Nausea/Vomiting Last Admin: 05/29/17 17:00 Dose: 4 mg Sodium Chloride (Saline Flush) 10 ml FLUSH ASDIRECTED PRN PRN Reason: Keep Vein Open Discontinued Medications Acetaminophen (Tylenol) Confirm Administered Dose 650 mg .ROUTE .STK-MED ONE Stop: 05/29/17 08:07 Last Admin: 05/29/17 10:41 Dose: Not Given Acetaminophen (Tylenol) 650 mg RECTAL NOW ONE Stop: 05/29/17 10:39 Last Admin: 05/29/17 10:30 Dose: 650 mg Haloperidol Lactate (Haldol) 0.5 mg IVPUSH Q8H PRN PRN Reason: Anxiety Last Admin: 05/28/17 22:51 Dose: 0.5 mg Haloperidol Lactate (Haldol) 2.5 mg IVPUSH ONETIME ONE Stop: 05/29/17 00:14 Last Admin: 05/29/17 00:20 Dose: 2.5 mg Lorazepam (Ativan) Confirm Administered Dose 2 mg .ROUTE .STK-MED ONE Stop: 05/28/17 21:06 Last Admin: 05/28/17 21:28 Dose: Not Given Lorazepam (Ativan) 1 mg IVPUSH Q6H PRN PRN Reason: Anxiety Last Admin: 05/28/17 21:10 Dose: 1 mg Lorazepam (Ativan) 1 mg IVPUSH Q4H [facility] Last Admin: 05/30/17 11:34 Dose: Not Given Miscellaneous Information (Remove Patch) 1 ea TRDERM BEDTIME [facility] Last Admin: 05/29/17 21:43 Dose: Not Given Morphine Sulfate (Morphine) 4 mg IVPUSH Q6H [facility] Last Admin: 05/30/17 11:23 Dose: Not Given Morphine Sulfate (Morphine) 4 mg IVPUSH Q6H PRN PRN Reason: pain Nicotine (Habitrol) 14 mg TRDERM DAILY [facility] Last Admin: 05/28/17 22:51 Dose: 14 mg - Exam General: Alert, Cooperative. No: Oriented HEENT: Other (mucous membranes dry) Neck: Supple Lungs: Rhonchi Cardiovascular: Regular Rate, Regular Rhythm GI/Abdominal Exam: Normal Bowel Sounds, Soft Extremities: No Pedal Edema Skin: Warm, Dry Psy/Mental Status: Alert, Other (oriented to person only) - Problem List & Annotations (1) Need for comfort care SNOMED Code(s): 303880578 Code(s): CBM2998 - Status: Acute Priority: High Current Visit: Yes (2) Acute on chronic renal failure SNOMED Code(s): 275710449 Code(s): N17.9 - ACUTE KIDNEY FAILURE, UNSPECIFIED; N18.9 - CHRONIC KIDNEY DISEASE, UNSPECIFIED Status: Acute Priority: High Current Visit: Yes Qualifiers: Acute renal failure type: unspecified 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 Qualified Code(s): N17.9 - Acute kidney failure, unspecified ; N18.9 - Chronic kidney disease, unspecified; Z99.2 - Dependence on renal dialysis (3) Congestive heart failure SNOMED Code(s): 66213036 Code(s): I50.9 - HEART FAILURE, UNSPECIFIED Status: Acute Priority: High Current Visit: Yes Qualifiers: Congestive heart failure type: systolic Congestive heart failure chronicity : acute Qualified Code(s): I50.21 - Acute systolic (congestive) heart failure (4) Unresponsive SNOMED Code(s): 007839550 Code(s): R41.89 - OTH SYMPTOMS AND SIGNS W COGNITIVE FUNCTIONS AND AWARENESS Status: Acute Current Visit: Yes - Problem List Review Problem List Initiated/Reviewed/Updated: Yes - My Orders Last 24 Hours: My Active Orders 05/31/17 09:24 Consult to Chart Collector [CONS] Routine - Assessment Assessment:: Comfort Cares/End of Life CHF Acute on chronic renal failure UTI - Plan Plan:: This patient is an 81 year old male that presented to the ER. Patient was seen and admitted for comfort care measures. I have again spoken to all 5 family members incuding both POAs at bedside of the patient. I have explained my findings and diagnostic testing that was performed yesterday and again discussed every treatment option of this patient. They all are in agreement that they would only like comfort care measures. They only want to keep the patient comfortable. They would like for him to be sleeping, painfree, and not restless. They would like use to remove oxygen from the patient. They do not want to transfer, dialysis, abx, lasix, fluids, or any forms of prolonging treatments. They are aware that this patient will and they are okay with this. The patient is a DNR and is comfort care. 05-30-2017 No family present with patient today. Did discuss with locum provider this am the discussion he had at length with family who wants patient kept comfortable with no further lab, xrays, medications or dialysis other than those that provide comfort. Patient had expressed a desire to stop any further dialysis and treatment last week and had chosen to not go on Monday. Became more and more weak and short of breath over the weekend until presenting here. Family would like to continue comfort cares only. Will continue with IV Ativan. Will switch to Fentanyl as needed. Keep patient as comfortable as possible with end of life expected. 05-31-2017 Patient much more alert today. Verbal but confused. Disoriented to place and time. Does not offer complaints. Does admit to being short of breath. Did advise patient of his and family's wishes prior to this in regards to stopping all cares. Questionable at this point if understands. Denies pain. Does still have a wet chest. Appears short of breath with any conversation. No edema. Has not yet voided at all during stay. Will continue with comfort cares only due to expressed desire by patient last week and now family to follow these wishes. Will continue with Ativan and Fentanyl. Social service consult to discuss possible [facility] versus swing bed stay for comfort cares.
[2017-06-01] MEDS: LORazepam 2 MG/ML Syringe IVPUSH SCH (08:54)
--- NOTE | 2017-06-03 17:53 | PCM.DCSUM1 ---
Discharge Summary - Hospital Course Free Text/Narrative:: Patient admitted from ER with concerns with CVA, altered mental status and weakness. Patient had refused to go to dialysis the Monday prior and had voiced to family that he wanted to be done. Complete work up was done in the ED. Found to have renal failure as expected and CHF. Family discussion was held at length with his son and provider and due to patient's voiced wishes prior to this event, family wanted for him to only be kept comfortable. Admitted for comfort measures with Ativan and Morphine. 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 Qualified Code(s): N17.9 - Acute kidney failure, unspecified ; N18.9 - Chronic kidney disease, unspecified; Z99.2 - Dependence on renal dialysis (3) Congestive heart failure SNOMED Code(s): 69160418 ICD Code: I50.9 - HEART FAILURE, UNSPECIFIED Status: Acute Priority: High Qualifiers: Congestive heart failure type: systolic Congestive heart failure chronicity : acute Qualified Code(s): I50.21 - Acute systolic (congestive) heart failure (4) Unresponsive SNOMED Code(s): 830343624 ICD Code: R41.89 - OTH SYMPTOMS AND SIGNS W COGNITIVE FUNCTIONS AND AWARENESS Status: Acute - Patient Summary/Data Complications: none Consults: Consultations 05/31/17 09:24 Consult to Home Care Rn [CONS] Routine Hospital Course: Patient was unresponsive for the first 2 days of admission. He was receiving IV ativan and morphine for comfort. On day 3, patient more alert, conversive. Continued to have moist breath sounds, not voiding at all since admission but tolerating small meals. Does require assistance with all cares. Patient pleasant but confused. No edema. Discussed with family there wishes about end of life care, transfer to swing bed or residential. Would like to continue comfort cares and transfer to swing bed for end of life cares. - Patient Instructions Diet: Regular Diet as Tolerated Activity: Bedrest - Discharge Plan Home Medications: Home Meds Allopurinol [Zyloprim] 100 mg PO DAILY 12/31/14 [History] Citalopram Hydrobromide [Celexa] 20 mg PO DAILY 12/31/14 [History] Metoprolol Succinate [Toprol XL] 200 mg PO DAILY 12/31/14 [History] atorvaSTATin Calcium [Atorvastatin Calcium] 10 mg PO DAILY 10/13/15 [History] Finasteride 5 mg PO DAILY 12/04/16 [History] Multivitamin [Multivitamins] 1 cap PO DAILY 12/05/16 [History] Ascorbate Calcium [Vitamin C] 500 mg PO DAILY 05/28/17 [History] Vit B Cmplx 3/Fa/Vit C/Biotin [Fay-Nevaeh Rx Tablet] 1 tab PO DAILY 05/28/17 [ History] Forms: ED Department Discharge Referrals: Dutch Quintero MD [Primary Care Provider] - - Discharge Summary/Plan Comment DC Time >30 min.: No Discharge Summary/Plan Comment: Transfer to swing bed for comfort cares. Continue with IV Ativan and Fentanyl. End of life/comfort cares. - General Info Date of Service: 06/01/17 Admission Dx/Problem (Free Text: End Stage Renal Failure Comfort Cares/End of Life Functional Status: Reports: Pain Controlled, Tolerating Diet. Denies: Ambulating - Review of Systems General: Reports: Weakness, Fatigue HEENT: Reports: No Symptoms Pulmonary: Reports: Shortness of Breath, Cough, Wheezing Cardiovascular: Denies: Chest Pain, Edema, Lightheadedness Gastrointestinal: Reports: No Symptoms Genitourinary: Reports: Other (no urine output since admission) Musculoskeletal: Reports: No Symptoms Skin: Reports: Jaundice Neurological: Reports: Confusion, Weakness - Patient Data Vitals - Most Recent: Last Vital Signs Temp 98.1 F 05/30/17 08:00 Pulse 69 05/30/17 08:00 Resp 16 05/30/17 08:00 BP 147/54 H 05/30/17 08:00 Pulse Ox 82 L 05/30/17 08:00 Weight - Most Recent: 160 lb Med Orders - Current: Current Medications Discontinued Medications Acetaminophen (Tylenol) Confirm Administered Dose 650 mg .ROUTE .STK-MED ONE Stop: 05/29/17 08:07 Last Admin: 05/29/17 10:41 Dose: Not Given Acetaminophen (Tylenol) 650 mg RECTAL NOW ONE Stop: 05/29/17 10:39 Last Admin: 05/29/17 10:30 Dose: 650 mg Acetaminophen (Tylenol) 650 mg RECTAL Q6H PRN PRN Reason: Fever Fentanyl (Sublimaze) 12.5 - 25 mcg IVPUSH Q2H PRN PRN Reason: Pain Haloperidol Lactate (Haldol) 0.5 mg IVPUSH Q8H PRN PRN Reason: Anxiety Last Admin: 05/28/17 22:51 Dose: 0.5 mg Haloperidol Lactate (Haldol) 2 mg IVPUSH Q8H PRN PRN Reason: Anxiety Last Admin: 05/29/17 17:01 Dose: 2 mg Haloperidol Lactate (Haldol) 2.5 mg IVPUSH ONETIME ONE Stop: 05/29/17 00:14 Last Admin: 05/29/17 00:20 Dose: 2.5 mg Hydromorphone HCl (Dilaudid) 0.5 mg IVPUSH Q2H PRN PRN Reason: Pain (severe 7-10) Last Admin: 05/29/17 02:16 Dose: 0.5 mg Lorazepam (Ativan) Confirm Administered Dose 2 mg .ROUTE .STK-MED ONE Stop: 05/28/17 21:06 Last Admin: 05/28/17 21:28 Dose: Not Given Lorazepam (Ativan) 1 mg IVPUSH Q6H PRN PRN Reason: Anxiety Last Admin: 05/28/17 21:10 Dose: 1 mg Lorazepam (Ativan) 1 mg IVPUSH Q2H PRN PRN Reason: Anxiety Last Admin: 05/30/17 11:34 Dose: 1 mg Lorazepam (Ativan) 1 mg IVPUSH Q4H [facility] Last Admin: 05/30/17 11:34 Dose: Not Given Lorazepam (Ativan) 1 mg IVPUSH Q12H [facility] Last Admin: 06/01/17 08:54 Dose: 1 mg Miscellaneous Information (Remove Patch) 1 ea TRDERM BEDTIME [facility] Last Admin: 05/29/17 21:43 Dose: Not Given Morphine Sulfate (Morphine) 4 mg IVPUSH Q6H [facility] Last Admin: 05/30/17 11:23 Dose: Not Given Morphine Sulfate (Morphine) 4 mg IVPUSH Q6H PRN PRN Reason: pain Nicotine (Habitrol) 14 mg TRDERM DAILY [facility] Last Admin: 05/28/17 22:51 Dose: 14 mg Ondansetron HCl (Zofran) 4 mg IV Q6H PRN PRN Reason: Nausea/Vomiting Last Admin: 05/29/17 17:00 Dose: 4 mg Sodium Chloride (Saline Flush) 10 ml FLUSH ASDIRECTED PRN PRN Reason: Keep Vein Open - Exam General: Reports: Alert. Denies: Oriented HEENT: Reports: Other (mucous membranes dry) Neck: Reports: Supple Lungs: Reports: Decreased Breath Sounds, Rhonchi Cardiovascular: Reports: Regular Rate, Regular Rhythm GI/Abdominal Exam: Normal Bowel Sounds, Soft, Non-Tender Extremities: No Pedal Edema Skin: Reports: Warm, Dry Neurological: Reports: No New Focal Deficit *Q Meaningful Use (DIS) - VTE *Q VTE Criteria *Q: - Stroke *Q Stroke Criteria *Q: - AMI *Q AMI Criteria *Q:
== END 2017-06-01 09:00 | disposition swing bed (61) | DRG 291 ==
LOC: CC.ED 18:44 → UNDOADMIN 20:36 → CC.MS 20:36
PROVIDERS: ADMIT Nurse Practitioner; ATTEND Family Medicine
DX: I13.2 Hypertensive heart and chronic kidney disease with heart failure and with stage 5 chronic kidney disease, or end stage renal disease (principal); R40.2431 Glasgow coma scale score 3-8, in the field [EMT or ambulance]; N18.6 End stage renal disease; I50.21 Acute systolic (congestive) heart failure; N17.9 Acute kidney failure, unspecified; R47.81 Slurred speech; N39.0 Urinary tract infection, site not specified; R06.02 Shortness of breath; R41.82 Altered mental status, unspecified; I48.91 Unspecified atrial fibrillation; R41.89 Other symptoms and signs involving cognitive functions and awareness; R53.1 Weakness; Z91.15 Patient's noncompliance with renal dialysis; Z51.5 Encounter for palliative care; Z66 Do not resuscitate; Z99.2 Dependence on renal dialysis; F17.210 Nicotine dependence, cigarettes, uncomplicated; Z79.899 Other long term (current) drug therapy; R19.7 Diarrhea, unspecified; Z85.51 Personal history of malignant neoplasm of bladder
CPT/HCPCS: 36415; 70450; 71010; 80053; 83605; 83880; 84484; 85025; 86140; 87040; 93005; 93010; 99285; A9270-GY; J1170; J1630; J2060; J2405

== ENCOUNTER 2017-06-01 09:05 | Inpatient (IN) | payer MEDICARE, OTHER ==
[2017-06-01] MEDS ORDERED: Sodium Chloride 0.9% 10 ML Syringe FLUSH PRN (10:43)
[2017-06-01] MEDS ORDERED: Acetaminophen 650 MG Supp RECTAL PRN (10:43)
[2017-06-01] MEDS ORDERED: LORazepam 2 MG/ML Syringe IVPUSH PRN (10:43)
[2017-06-01] MEDS ORDERED: fentaNYL 100 MCG/2 ML SDV IVPUSH PRN (10:43)
[2017-06-01] MEDS: Sodium Chloride 0.9% 10 ML Syringe FLUSH PRN (20:11)
[2017-06-01] MEDS: LORazepam 2 MG/ML Syringe IVPUSH SCH (20:12)
[2017-06-02] MEDS: LORazepam 2 MG/ML Syringe IVPUSH SCH ×2 (07:15→20:50)
[2017-06-03] MEDS: LORazepam 2 MG/ML Syringe IVPUSH SCH ×2 (08:24→20:42)
[2017-06-04] MEDS: LORazepam 2 MG/ML Syringe IVPUSH SCH ×2 (07:26→19:50)
[2017-06-05] MEDS: LORazepam 2 MG/ML Syringe IVPUSH SCH ×2 (07:13→20:23)
[2017-06-05 07:39] VITALS: BP 203/100
[2017-06-06] MEDS: LORazepam 2 MG/ML Syringe IVPUSH SCH ×2 (08:17→19:58)
[2017-06-06] MEDS: Ondansetron 4 MG/2 ML SDV IV PRN (12:12)
[2017-06-07] MEDS: LORazepam 2 MG/ML Syringe IVPUSH SCH ×2 (08:28→20:08)
[2017-06-07] MEDS: Sodium Chloride 0.9% 10 ML Syringe FLUSH PRN (20:08)
[2017-06-08] MEDS: LORazepam 2 MG/ML Syringe IVPUSH SCH (07:52)
[2017-06-08] MEDS: Oxyquinoline/Emollient 0.3% Oint 1 OZ Canister TOP PRN ×2 (14:00→19:40)
[2017-06-08] MEDS: Ondansetron 4 MG/2 ML SDV IV PRN (16:43)
[2017-06-08] MEDS: fentaNYL 100 MCG/2 ML SDV IVPUSH SCH (19:39)
[2017-06-09] MEDS: Ondansetron 4 MG/2 ML SDV IV PRN (05:28)
[2017-06-09] MEDS: fentaNYL 100 MCG/2 ML SDV IVPUSH SCH ×2 (08:07→20:34)
[2017-06-10] MEDS: fentaNYL 100 MCG/2 ML SDV IVPUSH SCH ×2 (08:28→19:48)
[2017-06-11] MEDS: fentaNYL 100 MCG/2 ML SDV IVPUSH SCH ×2 (07:55→19:47)
[2017-06-12] MEDS: fentaNYL 100 MCG/2 ML SDV IVPUSH SCH ×2 (08:01→20:08)
[2017-06-12] MEDS: Ondansetron 4 MG/2 ML SDV IV PRN (14:47)
[2017-06-12] MEDS: Oxyquinoline/Emollient 0.3% Oint 1 OZ Canister TOP PRN (20:07)
[2017-06-12] MEDS: Haloperidol Lactate 2 MG/ML Oral Soln 15 ML Bottle PO SCH (20:07)
[2017-06-13] MEDS: fentaNYL 100 MCG/2 ML SDV IVPUSH SCH ×2 (08:21→20:12)
[2017-06-13] MEDS: Haloperidol Lactate 2 MG/ML Oral Soln 15 ML Bottle PO SCH ×2 (08:42→20:16)
[2017-06-14] MEDS: Haloperidol Lactate 2 MG/ML Oral Soln 15 ML Bottle PO SCH ×2 (07:46→20:05)
[2017-06-14] MEDS: fentaNYL 100 MCG/2 ML SDV IVPUSH SCH ×2 (07:46→20:04)
[2017-06-15] MEDS: fentaNYL 100 MCG/2 ML SDV IVPUSH SCH ×2 (07:34→19:50)
[2017-06-15] MEDS: Haloperidol Lactate 2 MG/ML Oral Soln 15 ML Bottle PO SCH ×2 (07:36→19:28)
[2017-06-16] MEDS: fentaNYL 100 MCG/2 ML SDV IVPUSH SCH ×2 (08:24→20:14)
[2017-06-16] MEDS: Haloperidol Lactate 2 MG/ML Oral Soln 15 ML Bottle PO SCH ×2 (08:25→20:15)
[2017-06-16] MEDS: Menthol/Zinc Oxide Ointment 113 GM Tube TOP PRN (13:41)
--- NOTE | 2017-06-16 16:03 | PCM.PN ---
- General Info Date of Service: 06/15/17 Admission Dx/Problem (Free Text): Comfort Cares due to chronic renal failure Functional Status: Reports: Pain Controlled, Tolerating Diet. Denies: Ambulating - Review of Systems General: Reports: Weakness, Fatigue, Malaise HEENT: Reports: No Symptoms Pulmonary: Reports: Shortness of Breath, Cough Cardiovascular: Denies: Chest Pain, Edema, Lightheadedness Gastrointestinal: Reports: No Symptoms Genitourinary: Reports: Incontinence Musculoskeletal: Reports: No Symptoms Skin: Reports: Jaundice, Pallor Neurological: Reports: Confusion - Patient Data Vitals - Most Recent: Last Vital Signs Temp 97.3 F 06/05/17 07:37 Pulse 117 H 06/05/17 07:37 Resp 20 06/05/17 07:37 BP 203/100 H 06/05/17 07:37 Pulse Ox 90 L 06/05/17 07:37 Weight - Most Recent: 152 lb 6.4 oz Med Orders - Current: Current Medications Acetaminophen (Tylenol) 650 mg RECTAL Q6H PRN PRN Reason: Fever Calamine/Phenol (Calmoseptine) 0 gm TOP QID PRN PRN Reason: Perineal Comfort Measure Last Admin: 06/16/17 13:41 Dose: 1 applic Fentanyl (Sublimaze) 12.5 mcg IVPUSH Q12H [facility] Last Admin: 06/16/17 08:24 Dose: 12.5 mcg Haloperidol Lactate (Haldol) 2 mg IVPUSH Q8H PRN PRN Reason: Anxiety Haloperidol Lactate (Haldol 2 Mg/Ml Soln) 2 mg PO BID [facility] Last Admin: 06/16/17 08:25 Dose: 2 mg Hydromorphone HCl (Dilaudid) 0.5 mg IVPUSH Q2H PRN PRN Reason: Pain (severe 7-10) Ondansetron HCl (Zofran) 4 mg IV Q6H PRN PRN Reason: Nausea/Vomiting Last Admin: 06/12/17 14:47 Dose: 4 mg Oxyquinoline Sulfate (Bag [place] Oint) 0 oz TOP ASDIRECTED PRN PRN Reason: irritation Last Admin: 06/12/17 20:07 Dose: 1 applic Sodium Chloride (Saline Flush) 10 ml FLUSH ASDIRECTED PRN PRN Reason: Keep Vein Open Last Admin: 06/07/17 20:08 Dose: 10 ml Discontinued Medications Fentanyl (Sublimaze) 12.5 - 25 mcg IVPUSH Q2H PRN PRN Reason: Pain Lorazepam (Ativan) 1 mg IVPUSH Q2H PRN PRN Reason: Anxiety Lorazepam (Ativan) 1 mg IVPUSH Q12H [facility] Last Admin: 06/08/17 07:52 Dose: 1 mg - Exam General: Alert. No: Oriented HEENT: Mucous Membr. Moist/[place] Neck: Supple Lungs: Decreased Breath Sounds Cardiovascular: Regular Rate, Regular Rhythm, Murmurs GI/Abdominal Exam: Normal Bowel Sounds, Soft, Non-Tender Extremities: Normal Inspection, No Pedal Edema - Problem List & Annotations (1) Need for comfort care SNOMED Code(s): 647084813 Code(s): QPX0427 - Status: Acute Priority: High Current Visit: Yes (2) Acute on chronic renal failure SNOMED Code(s): 412505198 Code(s): N17.9 - ACUTE KIDNEY FAILURE, UNSPECIFIED; N18.9 - CHRONIC KIDNEY DISEASE, UNSPECIFIED Status: Acute Priority: High Current Visit: Yes Qualifiers: Acute renal failure type: unspecified 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 Qualified Code(s): N17.9 - Acute kidney failure, unspecified ; N18.9 - Chronic kidney disease, unspecified; Z99.2 - Dependence on renal dialysis (3) Altered mental status SNOMED Code(s): 651897304 Code(s): R41.82 - ALTERED MENTAL STATUS, UNSPECIFIED Status: Acute Priority: High Current Visit: Yes Qualifiers: Altered mental status type: coma Coma depth: Harris coma 3-8 Coma timing : in the field (EMT or ambulance) Qualified Code(s): R40.2431 - [place] coma scale score 3-8, in the field [EMT or ambulance] - Problem List Review Problem List Initiated/Reviewed/Updated: Yes - My Orders Last 24 Hours: My Active Orders 06/16/17 09:30 Air Mattress [Pressure Reduction Mattress] [OM.PC] Routine - Assessment Assessment:: Comfort cares due to chronic renal failure - Plan Plan:: Will continue with comfort cares, IV fentanyl BID, and Haldol as needed for pain and anxiety.
[2017-06-17] MEDS: fentaNYL 100 MCG/2 ML SDV IVPUSH SCH ×2 (08:24→19:35)
[2017-06-17] MEDS: Haloperidol Lactate 2 MG/ML Oral Soln 15 ML Bottle PO SCH ×2 (08:27→19:35)
[2017-06-17] MEDS: Ondansetron 4 MG/2 ML SDV IV PRN (12:31)
[2017-06-17] MEDS: Menthol/Zinc Oxide Ointment 113 GM Tube TOP PRN (19:36)
[2017-06-18] MEDS: fentaNYL 100 MCG/2 ML SDV IVPUSH SCH ×3 (08:14→23:00)
[2017-06-18] MEDS: Haloperidol Lactate 2 MG/ML Oral Soln 15 ML Bottle PO SCH ×2 (08:15→20:32)
[2017-06-18] MEDS: Haloperidol Lactate 5 MG/ML SDV IVPUSH PRN ×2 (11:48→22:50)
[2017-06-18] MEDS: HYDROmorphone 1 MG/ML Syringe IVPUSH PRN ×2 (16:30→18:30)
[2017-06-18] MEDS ORDERED: Atropine 1% Ophth Soln 5 ML BOTTLE SL PRN (22:42)
[2017-06-18] MEDS ORDERED: Atropine 1% Ophth Soln 5 ML BOTTLE SL SCH (22:45)
--- NOTE | 2017-06-19 14:00 | PCM.DCSUM1 ---
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 Condition: - Patient Summary/Data Consults: Consultations 06/01/17 10:43 Consult to Meteorological Aide [CONS] Routine 06-18-2017 Patient Comfort/Pallitive cares only Expires 06/18/2017 2304 - Discharge Plan Home Medications: Home Meds Allopurinol [Zyloprim] 100 mg PO DAILY 12/31/14 [History] Citalopram Hydrobromide [Celexa] 20 mg PO DAILY 12/31/14 [History] Metoprolol Succinate [Toprol XL] 200 mg PO DAILY 12/31/14 [History] atorvaSTATin Calcium [Atorvastatin Calcium] 10 mg PO DAILY 10/13/15 [History] Finasteride 5 mg PO DAILY 12/04/16 [History] Multivitamin [Multivitamins] 1 cap PO DAILY 12/05/16 [History] Ascorbate Calcium [Vitamin C] 500 mg PO DAILY 05/28/17 [History] Vit B Cmplx 3/Fa/Vit C/Biotin [Fay-Nevaeh Rx Tablet] 1 tab PO DAILY 05/28/17 [ History] - General Info Date of Service: 06/18/17 (Patient expires 2303) Admission Dx/Problem (Free Text: Pallitive comfort measures patient Functional Status: Denies: Pain Controlled, Tolerating Diet, Ambulating, Urinating - Patient Data Vitals - Most Recent: Last Vital Signs Temp 35.3 C 06/18/17 10:00 Pulse 117 H 06/05/17 07:37 Resp 20 06/05/17 07:37 BP 203/100 H 06/05/17 07:37 Pulse Ox 90 L 06/05/17 07:37 Weight - Most Recent: 69.127 kg Med Orders - Current: Current Medications Discontinued Medications Acetaminophen (Tylenol) 650 mg RECTAL Q6H PRN PRN Reason: Fever Atropine Sulfate (Atropine 1% Ophth Soln) 1 ml SL Q2H GIL Atropine Sulfate (Atropine 1% Ophth Soln) 1 ml SL Q2H PRN PRN Reason: Other Last Admin: 06/18/17 22:50 Dose: 1 ml Calamine/Phenol (Calmoseptine) 0 gm TOP QID PRN PRN Reason: Perineal Comfort Measure Last Admin: 06/17/17 19:36 Dose: 1 applic Fentanyl (Sublimaze) 12.5 - 25 mcg IVPUSH Q2H PRN PRN Reason: Pain Fentanyl (Sublimaze) 12.5 mcg IVPUSH Q12H [facility] Last Admin: 06/18/17 23:00 Dose: 12.5 mcg Haloperidol Lactate (Haldol) 2 mg IVPUSH Q8H PRN PRN Reason: Anxiety Last Admin: 06/18/17 22:50 Dose: 2 mg Haloperidol Lactate (Haldol 2 Mg/Ml Soln) 2 mg PO BID [facility] Last Admin: 06/18/17 20:32 Dose: 2 mg Hydromorphone HCl (Dilaudid) 0.5 mg IVPUSH Q2H PRN PRN Reason: Pain (severe 7-10) Last Admin: 06/18/17 18:30 Dose: 0.5 mg Lorazepam (Ativan) 1 mg IVPUSH Q2H PRN PRN Reason: Anxiety Lorazepam (Ativan) 1 mg IVPUSH Q12H [facility] Last Admin: 06/08/17 07:52 Dose: 1 mg Ondansetron HCl (Zofran) 4 mg IV Q6H PRN PRN Reason: Nausea/Vomiting Last Admin: 06/17/17 12:31 Dose: 4 mg Oxyquinoline Sulfate (Bag [place] Oint) 0 oz TOP ASDIRECTED PRN PRN Reason: irritation Last Admin: 06/12/17 20:07 Dose: 1 applic Sodium Chloride (Saline Flush) 10 ml FLUSH ASDIRECTED PRN PRN Reason: Keep Vein Open Last Admin: 06/07/17 20:08 Dose: 10 ml *Q Meaningful Use (DIS) - VTE *Q VTE Criteria *Q: - Stroke *Q Stroke Criteria *Q: - AMI *Q AMI Criteria *Q:
== END 2017-06-18 23:04 | disposition expired | DRG 291 ==
LOC: CC.MS 09:05 → UNDOADMIN 09:05 → CC.MS 10:43
PROVIDERS: ADMIT Family Medicine; ATTEND Family Medicine
DX: I13.2 Hypertensive heart and chronic kidney disease with heart failure and with stage 5 chronic kidney disease, or end stage renal disease (principal); N18.6 End stage renal disease; I50.21 Acute systolic (congestive) heart failure; N17.9 Acute kidney failure, unspecified; Z99.2 Dependence on renal dialysis; Z51.5 Encounter for palliative care; R41.82 Altered mental status, unspecified; Z79.899 Other long term (current) drug therapy; H91.90 Unspecified hearing loss, unspecified ear; I48.91 Unspecified atrial fibrillation; Z86.711 Personal history of pulmonary embolism; F17.210 Nicotine dependence, cigarettes, uncomplicated
CPT/HCPCS: A6250; A9270-GY; J1170; J1630; J2060; J2405; J3010; J7050